=== PATIENT | male | born 1990 | race Caucasian/White ===

== ENCOUNTER 2023-01-18 20:19 | Emergency (ER) | payer SELFPAY ==
[2023-01-18] VITALS (10 sets, daily range): BP systolic 128–142; BP diastolic 89–100; PULSE 118–139; RESP 14–26; TEMP 36.8; O2SAT 96; BMI 36.3
--- NOTE | 2023-01-18 21:00 | ED_ITS ---
HPI - Chest Pain General Chief Complaint: Chest Pain Stated Complaint: CHEST PAIN Time Seen by Provider: 01/18/23 20:54 Source: patient Mode of arrival: walk-in Limitations: no limitations History of Present Illness HPI narrative: patient complains of increased stress. States stress related to his job. Tonight while eating sandwich developed sharp right sided chest pain 10/10 that lasted about 10 seconds. Since then has had a midsternal pressure like pain 3/10 of his chest. No associated dyspnea, nausea or light headiness. No known medical history but admits for the past week he has been wheezing some. Does not smoke cigarettes or have asthma. No fever. No palpitations MD complaint: Reports chest pain Related Data Home Medications Medication Instructions Recorded Confirmed No Known Home Medications 01/18/23 01/18/23 Allergies Allergy/AdvReac Type Severity Reaction Status Date / Time No Known Drug Allergies Allergy Verified 01/18/23 20:32 Review of Systems ROS Status of ROS 10 or more systems reviewed and unremarkable except as noted in history and below Exam Constitutional Vital Signs, click to edit/add: Last Vital Signs Temp 98.2 F 01/18/23 20:28 Pulse 118 H 01/18/23 21:59 Resp 15 01/18/23 21:57 BP 142/100 H 01/18/23 20:28 Pulse Ox 96 01/18/23 20:28 O2 Del Method Room Air 01/18/23 20:28 Common normals: no apparent distress, average body habitus, oriented x3, no limitations, healthy appearing and well nourished Eye Common normals: PERRL, EOMs intact bilaterally and conjunctivae normal Respiratory Common normals: normal respiratory effort, no retractions and no use of accessory muscles Other: faint expiratory wheeze Cardio Common normals: S1 normal heart sound, S2 normal heart sound, no gallops and no murmurs Rate: tachycardic GI Common normals: Normal to inspection, nondistended, normoactive bowel sounds present, soft to palpation and non-tender Extremity Common normals: normal to inspection and full ROM Neuro Common normals: oriented x3, CN's II-XII intact bilaterally, moves all extremities, no focal motor deficits and no sensory deficits noted Psych Appearance: grossly normal Course Vital Signs Vital signs: Vital Signs Temperature 98.2 F 01/18/23 20:28 Pulse Rate 131 H 01/18/23 20:28 Respiratory Rate 20 01/18/23 20:28 Blood Pressure 142/100 H 01/18/23 20:28 Pulse Oximetry 96 01/18/23 20:28 Oxygen Delivery Method Room Air 01/18/23 20:28 Temperature 98.2 F 01/18/23 20:28 Pulse Rate 118 H 01/18/23 21:59 Respiratory Rate 15 01/18/23 21:57 Blood Pressure 142/100 H 01/18/23 20:28 Pulse Oximetry 96 01/18/23 20:28 Oxygen Delivery Method Room Air 01/18/23 20:28 MDM - Chest Pain MDM Narrative Medical decision making narrative: patient presents complaining of chest pain. indigestion Similar pain one week ago and was seen at [place]. States he was referred to cardiology Tonight indigestion again describe as pressure like an elephant sitting on his chest and pain radiating down his left arm. Arrived in the ER and pain was resolving. Workup inn the department neg. Discussed with the hospitalist and patient accepted for admission Lab Data Labs: Lab Results 01/18/23 Range/Units 20:55 WBC 8.8 (4.0-11.0) 10^3/uL RBC 5.44 (4.70-6.10) 10^6/uL Hgb 15.9 (14.0-18.0) g/dL Hct 46.4 (42.0-54.0) % MCV 85.3 (80.0-94.0) fL MCH 29.2 (25.9-34.0) pg MCHC 34.3 (29.9-35.2) g/dL RDW 12.2 (11.0-15.0) % Plt Count 314 (150-450) 10^3/uL MPV 8.4 L (9.5-13.5) fL Neut % (Auto) 71.5 (43.0-75.0) % Lymph % (Auto) 18.2 L (20.5-60.0) % [place] % (Auto) 5.8 (1.7-12.0) % Eos % (Auto) 4.0 (0.9-7.0) % Baso % (Auto) 0.3 (0.2-2.0) % Neut # (Auto) 6.3 (1.4-6.5) 10^3/uL Lymph # (Auto) 1.6 (1.2-3.8) 10^3/uL [place] # (Auto) 0.5 (0.3-0.8) 10^3/uL Eos # (Auto) 0.4 (0.0-0.7) 10^3/uL Baso # (Auto) 0.0 (0.0-0.1) 10^3/uL Abs Immat Gran (auto) 0.02 (0.00-0.03) 10^3/uL Imm/Tot Granulo (auto) 0.2 (0.0-0.5) % D-Dimer <0.19 (<=0.59) mg/L FEU Sodium 139 (136-145) mmol/L Potassium 3.5 (3.5-5.1) mmol/L Chloride 105 (98-107) mmol/L Carbon Dioxide 26.8 (21.0-32.0) mmol/L Anion Gap 10.7 BUN 13.0 (7.0-18.0) mg/dL Creatinine 1.21 (0.70-1.30) mg/dL Est GFR ( Amer) >60 (>=60) Est GFR (Non-Af Amer) >60 (>=60) BUN/Creatinine Ratio 10.7 Glucose 130 H (74-106) mg/dL Calcium 8.8 (8.5-10.1) mg/dL Total Bilirubin 0.3 (0.2-1.0) mg/dL AST 15 (15-37) U/L ALT 38 (16-63) U/L Alkaline Phosphatase 71 (46-116) U/L Troponin I High Sens 6.2 (4.0-76.1) pg/mL Total Protein 7.2 (6.4-8.2) g/dL Albumin 4.3 (3.4-5.0) g/dL Globulin 2.9 g/dL Albumin/Globulin Ratio 1.5 Lipase 72.0 L (73.0-393.0) U/L Discharge Plan Discharge Chief Complaint: Chest Pain Clinical Impression: Chest pain Patient Disposition: Admitted as Observation
--- NOTE | 2023-01-18 21:03 | ECG_ITS ---
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
--- NOTE | 2023-01-18 21:03 | XR_ITS ---
[address] [address] Patient Name: ADAN BOB MRN: [id number] date: 1990 Sex: M Assigned Patient Location: ER Current Patient Location: ER Accession/Order Number: [id number] Exam Date: 01/18/2023 21:07 Report Date: 01/18/2023 21:31 At the request of: DONTE PRIETO Procedure: XR chest 1V EXAMINATION: XR chest 1V HISTORY: Chest pain COMPARISON: None. TECHNIQUE: Portable chest FINDINGS: The lung parenchyma is free of consolidation or infiltrate. No pneumothorax or pleural effusion. The cardiac, mediastinal and hilar contours are normal. The visualized osseous structures exhibit no gross abnormality. XR/XR chest 1V IMPRESSION: No acute cardiopulmonary abnormality. Electronically authenticated by: BRITNEY UMANA Date: 01/18/2023 21:31
--- NOTE | 2023-01-18 21:17 | PC.NURSE ---
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 patient denies any cardiac hx. patient is currently tachycardic. denies any nausea, vomiting, or recent illnesses. patient appears very anxious. when asked if he had a hx of anxiety patient states he does believe he has been suffering from this but has not been evaluated. patient states hes is always nervous at work. states he also has not been having a good nights sleep due to being afraid hes going to oversleep and miss a call into work and it stresses him out. patient states he wakes up alot at night to check his phone. his daughter recently moved out of state and his has had a abdominal surgery that he admits to being nervous about. patient states this is a daily thing. asking alot of questions about anxiety and what it was feels like. RN tried to reassure patient that he was in a safe place and we would evaluate him. he does not believe hes having a heart attack or anything cardiac related. ekg obtained and given to physican. patient denies needs at this time.
[2023-01-18 21:24] LABS: Basophils Percent Auto 0.3 % (0.2-2.0); Eosinophils Absolute Auto 0.4 10^3/uL (0.0-0.7); Hematocrit 46.4 % (42.0-54.0); Hemoglobin 15.9 g/dL (14.0-18.0); Immature Granulocytes Abs Auto 0.02 10^3/uL (0.00-0.03); Immature Granulocytes Pct Auto 0.2 % (0.0-0.5); Lymphocytes Absolute Auto 1.6 10^3/uL (1.2-3.8); Lymphocytes Percent Auto 18.2 % (20.5-60.0); Mean Corpuscular HGB Conc 34.3 g/dL (29.9-35.2); Mean Corpuscular Hemoglobin 29.2 pg (25.9-34.0); Mean Corpuscular Volume 85.3 fL (80.0-94.0); Mean Platelet Volume 8.4 fL (9.5-13.5); Monocytes Absolute Auto 0.5 10^3/uL (0.3-0.8); Monocytes Percent Auto 5.8 % (1.7-12.0); Neutrophils Absolute Auto 6.3 10^3/uL (1.4-6.5); Neutrophils Percent Auto 71.5 % (43.0-75.0); Platelet Count 314 10^3/uL (150-450); Red Blood Count 5.44 10^6/uL (4.70-6.10); Red Cell Distribution Width 12.2 % (11.0-15.0); White Blood Count 8.8 10^3/uL (4.0-11.0)
[2023-01-18] MEDS: lidocaine HCL 15 ML, MAG HYDROX/ALUMINUM HYD/SIMETH 30 ML, HYOSCYAMINE SULFATE 0.25 MG PO (21:32)
[2023-01-18 21:38] LABS: Alanine Aminotransferase 38 U/L (16-63); Albumin Globulin Ratio 1.5; Albumin Level 4.3 g/dL (3.4-5.0); Alkaline Phosphatase 71 U/L (46-116); Anion Gap 10.7; Aspartate Amino Transferase 15 U/L (15-37); BUN Creatinine Ratio 10.7; Bilirubin Total 0.3 mg/dL (0.2-1.0); Calcium 8.8 mg/dL (8.5-10.1); Carbon Dioxide 26.8 mmol/L (21.0-32.0); Chloride 105 mmol/L (98-107); Estimated GFR (African America >60 (>=60); Estimated GFR (Non-African Ame >60 (>=60); Globulin 2.9 g/dL; Glucose 130 mg/dL (74-106); Potassium 3.5 mmol/L (3.5-5.1); Sodium 139 mmol/L (136-145); Total Protein 7.2 g/dL (6.4-8.2); Troponin I High Sensitivity 6.2 pg/mL (4.0-76.1)
[2023-01-18 21:39] LABS: D Dimer <0.19 mg/L FEU (<=0.59)
[2023-01-18 23:37] LABS: Troponin I High Sensitivity 5.7 pg/mL (4.0-76.1)
[2023-01-19] MEDS: OMEPRAZOLE 40 MG CAPSULE.DR PO (00:03)
== END 2023-01-19 00:15 | disposition home or self-care (01) ==
PROVIDERS: Emergency Provider Internal Medicine
DX: R07.9 Chest pain, unspecified (principal)
CPT/HCPCS: 36415; 71045; 80053; 83690; 84484; 85025; 85378; 93005; 99285